=== PATIENT | male | born 1935 | race Caucasian/White ===

== ENCOUNTER → 2016-10-21 | Outpatient (CLI) | payer OTHER ==
[~2016-10-21] MED LIST: ALL300 PO; CRS5 PO; LEVO175T3 PO; METF850T PO; METO25TA3 PO; MULT-506 PO; NTRGSL/4 UT; OMEG10007 PO
== END | disposition home or self-care (01) ==
LOC: C.LABSPEC 14:41
PROVIDERS: ATTEND Internal Medicine
DX: Z12.11 Encounter for screening for malignant neoplasm of colon (principal)

== ENCOUNTER → 2016-10-31 | Outpatient (CLI) | payer OTHER ==
[2016-10-31 12:27] LABS: BASO % 0.9 %; BASO ABS # 0.05 K/uL (0-0.2); COMPLETE YES; EOS % 4.3 %; HEMATOCRIT 47.5 % (42-52); IG% 0.4 %; LYMPH % 27.1 %; LYMPH ABS # 1.44 K/uL (1.2-3.4); MEAN CELL VOLUME 89.1 fL (80-100); MEAN CORPUSCULAR HEMOGLOBIN 30.6 pg (25-34); MEAN CORPUSCULAR HGB CONC 34.3 g/dl (32-36); MEAN PLATELET VOLUME 11.4 fL (7.4-10.4); MONO % 5.8 %; NEUT % 61.5 %; PLATELET COUNT 118 K/uL (130-400); RED BLOOD COUNT 5.33 M/uL (4.7-6.1); WHITE BLOOD COUNT 5.31 K/uL (4.8-10.8)
[2016-10-31 12:39] LABS: ESTIMATED AVERAGE GLUCOSE 126 mg/dl; HA1C FLAG Normal (Normal)
[2016-10-31 12:52] LABS: BLOOD UREA NITROGEN 15 mg/dl (7-18); BUN/CREATININE RATIO 15.9 (10-20); CARBON DIOXIDE 31 mmol/L (21-32); CHLORIDE 104 mmol/L (98-107); CREATININE 0.97 mg/dl (0.60-1.40); GLUCOSE 139 mg/dl (70-99); POTASSIUM 4.1 mmol/L (3.5-5.1); SODIUM 142 mmol/L (136-145)
[2016-10-31 13:03] LABS: ALB/GLOB RATIO 1.3 (0.9-2); ALKALINE PHOSPHATASE 70 U/L (45-117); ALT/SGPT 35 U/L (12-78); AST/SGOT 34 U/L (15-37); THYROID STIMULATING HORMONE 0.099 uIu/ml (0.300-4.500)
[2016-10-31 13:24] LABS: CALCIUM 10.1 mg/dl (8.5-10.1)
== END | disposition home or self-care (01) ==
LOC: C.LABSPEC 12:06
PROVIDERS: ATTEND Internal Medicine
DX: R63.4 Abnormal weight loss (principal); E11.9 Type 2 diabetes mellitus without complications; E78.5 Hyperlipidemia, unspecified

== ENCOUNTER → 2017-02-17 | Outpatient (CLI) | payer OTHER ==
[2017-02-17 15:49] LABS: BLOOD UREA NITROGEN 18 mg/dl (7-18); BUN/CREATININE RATIO 16.4 (10-20); CALCIUM 9.3 mg/dl (8.5-10.1); CARBON DIOXIDE 26 mmol/L (21-32); CHLORIDE 107 mmol/L (98-107); CHOLESTEROL 119 mg/dl (0-200); GLUCOSE 115 mg/dl (70-99); POTASSIUM 4.4 mmol/L (3.5-5.1); SODIUM 142 mmol/L (136-145); TRIGLYCERIDES 206 mg/dl (0-150); VERY LOW DENSITY LIPOPROT CALC 41 mg/dl
[2017-02-17 15:52] LABS: CHOLESTEROL/HDL RATIO 3.7; HDL CHOLESTEROL 32 mg/dl
[2017-02-18 08:10] LABS: ESTIMATED AVERAGE GLUCOSE 128 mg/dl; HA1C FLAG Normal (Normal)
== END | disposition home or self-care (01) ==
LOC: C.LABSPEC 15:10
PROVIDERS: ATTEND Internal Medicine
DX: E11.65 Type 2 diabetes mellitus with hyperglycemia (principal); I10 Essential (primary) hypertension; I25.10 Atherosclerotic heart disease of native coronary artery without angina pectoris; E78.5 Hyperlipidemia, unspecified

== ENCOUNTER → 2017-10-16 | Outpatient (CLI) | payer OTHER ==
[~2017-10-16] MED LIST changes: -METO25TA3 PO; +METO25TA4 PO
[2017-10-16 17:33] LABS: ALBUMIN 3.9 gm/dl (3.4-5.0); ALT/SGPT 38 U/L (12-78); AST/SGOT 38 U/L (15-37); BLOOD UREA NITROGEN 17 mg/dl (7-18); CALCIUM 9.5 mg/dl (8.5-10.1); CARBON DIOXIDE 28 mmol/L (21-32); CHOLESTEROL 144 mg/dl (0-200); CREATININE 1.16 mg/dl (0.60-1.40); GLUCOSE 138 mg/dl (70-99); POTASSIUM 4.3 mmol/L (3.5-5.1); SODIUM 140 mmol/L (136-145)
[2017-10-16 17:40] LABS: ALKALINE PHOSPHATASE 76 U/L (45-117); LDL CHOLESTEROL (DIRECT) 82 mg/dl; TOTAL PROTEIN 7.3 gm/dl (6.4-8.2)
[2017-10-17 05:52] LABS: HEMOGLOBIN A1C 6.5 % (4.5-5.6)
== END | disposition home or self-care (01) ==
LOC: C.LABSPEC 16:38
PROVIDERS: ATTEND Internal Medicine
DX: E11.9 Type 2 diabetes mellitus without complications (principal); E78.5 Hyperlipidemia, unspecified; I10 Essential (primary) hypertension; E03.9 Hypothyroidism, unspecified

== ENCOUNTER → 2017-10-19 | Outpatient (CLI) | payer OTHER ==
--- NOTE | 2017-10-19 11:32 | DIAGNOSTIC IMAGING REPORT ---
(RENAL)RETROPERITON COMP HISTORY: 82 years-old Male BILATERAL RENAL CYST follow-up study in a patient with bilateral renal cysts. COMPARISON: CT abdomen and pelvis 09/01/2011. Television Camera Operator notes mention that a recent renal ultrasound was obtained 11/29/2017, however that study is not available for comparison at time of dictation. TECHNIQUE: Multiple real-time sonogram images of the kidneys and bladder were obtained assessing grayscale appearance and color flow FINDINGS: Right kidney measures 14.1 cm in length. Nonobstructing right-sided renal calculi or hydronephrosis. Areas of twinkle artifact within the right kidney suggest nonobstructing renal calculi. Multiple renal cysts on the right are noted, largest of which is within the interpolar right kidney measuring 7.6 x 7.1 x 7.2 cm and demonstrates mild layering debris within partially calcified internal septations. This lesion measured up to 6.8 cm on study dated 09/01/2011. Left kidney measures 12.8 cm in length. Nonobstructing renal calculi are seen on the left measuring up to 1.3 cm within the interpolar region. Multiple renal cysts are again noted within the left kidney, largest of which involves the superior pole measuring 2.4 x 2.5 x 1.6 cm. Several of the cysts within the left kidney demonstrates thin internal septations. Increased echogenicity of the bilateral kidneys. Only the left ureteral jet is identified within the bladder. Urinary bladder is otherwise unremarkable. IMPRESSION: 1. Bilateral complex renal cysts, the largest of which measures 7.6 cm on the right containing layering internal debris and thin calcified internal septations. 2. Bilateral nonobstructing renal calculi. 3. Increased echogenicity of the bilateral kidneys suggests chronic medical renal disease. The above report was generated using voice recognition software. It may contain grammatical, syntax or spelling errors. Electronically signed by: James Navas M.D. 10/19/2017 11:31 AM Dictated Date/Time: 10/19/2017 11:20 AM
== END | disposition home or self-care (01) ==
LOC: C.ULTR 10:32
PROVIDERS: ATTEND Internal Medicine
DX: N28.1 Cyst of kidney, acquired (principal)

== ENCOUNTER → 2018-02-15 | Outpatient (CLI) | payer OTHER ==
[2018-02-15 13:49] LABS: BLOOD UREA NITROGEN 16 mg/dl (7-18); CALCIUM 8.9 mg/dl (8.5-10.1); CARBON DIOXIDE 26 mmol/L (21-32); CHOLESTEROL 128 mg/dl (0-200); CREATININE 1.18 mg/dl (0.60-1.40); GLUCOSE 145 mg/dl (70-99); LDL CHOLESTEROL (DIRECT) 73 mg/dl; SODIUM 139 mmol/L (136-145)
[2018-02-15 13:53] LABS: HEMOGLOBIN A1C 6.8 % (4.5-5.6)
== END | disposition home or self-care (01) ==
LOC: C.LABSPEC 12:53
PROVIDERS: ATTEND Internal Medicine
DX: I25.10 Atherosclerotic heart disease of native coronary artery without angina pectoris (principal); E11.9 Type 2 diabetes mellitus without complications; I10 Essential (primary) hypertension; E78.5 Hyperlipidemia, unspecified